=== PATIENT | female | born 1965 | race Caucasian/White ===

== ENCOUNTER → 2024-06-05 10:31 | Outpatient (REF) | payer OTHER, SELFPAY | LOC: HWRAD 10:31 | PROVIDERS: ATTENDING PHYSICIAN Internal Medicine | DX: M79.671 Pain in right foot (principal) | CPT/HCPCS: 73630 ==

== ENCOUNTER → 2024-09-13 11:22 | Outpatient (REF) | payer OTHER, SELFPAY | LOC: HWWDC 11:22 | PROVIDERS: ATTENDING PHYSICIAN Internal Medicine | DX: Z12.31 Encounter for screening mammogram for malignant neoplasm of breast (principal) | CPT/HCPCS: 77063; 77067 ==

== ENCOUNTER → 2025-01-07 12:34 | Outpatient (REF) | payer OTHER, SELFPAY | LOC: RAD 12:34 | PROVIDERS: ATTENDING PHYSICIAN Internal Medicine | DX: R10.84 Generalized abdominal pain (principal); R19.7 Diarrhea, unspecified | CPT/HCPCS: 74177; Q9967 ==